=== PATIENT | female | born 1970 | race African-American/Black ===

== ENCOUNTER 2016-06-12 12:00 | Emergency (ER) | payer OTHER ==
[~2016-06-12] VITALS: Ht 160 cm; Wt 53.5 kg
[2016-06-12] MEDS ORDERED: ACETAMINOPHEN 325 MG TABLET PO ONE (13:15)
[2016-06-12] MEDS ORDERED: ACETAMINOPHEN 325 MG TABLET ONE (13:31)
[2016-06-12 13:50] VITALS: BP 119/74
--- NOTE | 2016-06-12 13:50 | NUR ---
Patient discharged to home in stable conditon. Written and verbal after care instructions given. Patient verbalizes understanding of instructions.
== END 2016-06-12 13:51 | disposition home or self-care (01) ==
LOC: ER 12:00
DX: J06.9 Acute upper respiratory infection, unspecified (principal); M06.9 Rheumatoid arthritis, unspecified; F17.210 Nicotine dependence, cigarettes, uncomplicated
CPT/HCPCS: 71020; 99284; A4663